=== PATIENT | male | born 1965 | race Asian ===

== ENCOUNTER 2019-07-16 18:14 | Emergency (ER) | payer BC ==
[~2019-07-16] VITALS: Ht 175.3 cm; Wt 63.5 kg
[2019-07-16 18:14] VITALS: BP 127/75
--- NOTE | 2019-07-16 18:15 | NUR ---
ED Nurse Note: pt ambulated into ed from home [place] fever x 4 days possibly d/t previous infected tooth since may. Pt was taking antibiotic to reduce infection prior to intended dental surgery but was unable to proceed with surgery d/t outside complications. Pt aao x 4, vss no ss of distress noted. ERPA at bedside
--- NOTE | 2019-07-16 18:31 | Emergency Room Report ---
History of Present Illness General Chief Complaint: Fever Source: Patient (Altagracia Madison) Present Illness HPI 53-year-old male with no significant past medical history here complaining of 3 days of fever and headache. Reports that the headache is on the same side he was previously diagnosed with tooth abscess. Patient was told that he had a tooth abscess back in early May by a dentist, was given antibiotics and felt better however reports that tooth extraction at this time due to quarantine. Denies any abdominal pain, nausea vomiting, vertigo, dizziness and hearing loss. Denies shortness of breath and cough. Reports that he has been staying home for the past several weeks. Reports that his roommate was sick prior to him for 5 days. Patient is currently taking Tamiflu since 2 days ago and reports no improvement. Has been taking Advil every few hours. Sitting comfortably with stable vital signs, oxygenation and temperature within normal limits. Denies recent travel. Minimal swelling noted on right maxilla and patient exhibits 3/10 pain upon palpation of the affected area. Denies any pain radiation or tingling numbness. (Altagracia Madison) Allergies: Coded Allergies: SULFA (SULFONAMIDE ANTIBIOTICS) (Verified Allergy, Mild, 07/16/19) COVID-19 Screening Contact w/high risk pt: No Recent Travel to affected area: No Experienced COVID-19 symptoms?: Yes COVID-19 symptoms experienced: Fever (T>100.4F or >38C) (Altagracia Madison) Patient History Past Medical History: see triage record Past Surgical History: none Pertinent Family History: none Immunizations: UTD Reviewed Nursing Documentation: PMH: Agreed; PSxH: Agreed (Altagracia Madison) Nursing Documentation-PMH Past Medical History: No Stated History (Altagracia Madison) Review of Systems All Other Systems: negative except mentioned in HPI (Altagracia Madison) Physical Exam Vital Signs Date Time Temp Pulse Resp B/P (MAP) Pulse Ox O2 Delivery O2 Flow Rate FiO2 07/16/19 18:05 98.1 90 18 127/75 (92) 98 Sp02 EP Interpretation: reviewed, normal General Appearance: no apparent distress, alert, GCS 15, non-toxic Head: normocephalic, atraumatic Eyes: bilateral eye normal inspection, bilateral eye PERRL ENT: hearing grossly normal, normal pharynx, no angioedema, normal voice Neck: full range of motion, supple/symm/no masses Respiratory: chest non-tender, lungs clear, normal breath sounds, no rhonchi, no retraction, no wheezing, speaking full sentences Cardiovascular #1: regular rate, rhythm, no edema Gastrointestinal: non tender, soft Genitourinary: no CVA tenderness Musculoskeletal: back normal, swelling - Right maxillary Neurologic: alert, oriented Psychiatric: normal inspection, judgement/insight normal Skin: no rash Lymphatic: no adenopathy (Altagracia Madison) Medical Decision Making PA Attestation All diagnoses and treatment plans were reviewed and discussed with my supervising physician Dr. Beyer (Altagracia Madison) Diagnostic Impression: Primary Impression: Dental abscess Additional Impression: Fever ER Course 53-year-old male with no significant past medical history here complaining of 3 days of fever and headache. Reports that the headache is on the same side he was previously diagnosed with tooth abscess. Patient was told that he had a tooth abscess back in early May by a dentist, was given antibiotics and felt better however reports that tooth extraction at this time due to quarantine. Denies any abdominal pain, nausea vomiting, vertigo, dizziness and hearing loss. Denies shortness of breath and cough. Reports that he has been staying home for the past several weeks. Reports that his roommate was sick prior to him for 5 days. Patient is currently taking Tamiflu since 2 days ago and reports no improvement. Has been taking Advil every few hours. Sitting comfortably with stable vital signs, oxygenation and temperature within normal limits. Denies recent travel. Minimal swelling noted on right maxilla and patient exhibits 3/10 pain upon palpation of the affected area. Denies any pain radiation or tingling numbness. Ddx considered but are not limited to: Coronavirus, strep pharyngitis, URI, tonsillitis, peritonsillar abscess, influneza fever secondary to tooth abscess Vital signs: are WNL, pt. is afebrile H&PE are most consistent with: Fever secondary to dental abscess ORDERS: CBC, CMP, UA, lactic acid, blood culture, influenza swab, CK, CK-MB, troponin, chest x-ray ED INTERVENTIONS: None required at this time. I signed out the patient to Dr. Beyer at 7:15PM DISCHARGE: At this time pt. is stable for d/c to home. Will provide printed patient care instructions, and any necessary prescriptions. Care plan and follow up instructions have been discussed with the patient prior to discharge. (Altagracia Madison) ER Course Patient seen and examined by me. He reported fever and flulike symptoms for the past week. On my exam he was in no distress. Nontoxic-appearing. Chest x- ray showed no obvious infiltrate. Patient complained of headache this was in the area of a dental abscess which had not been treated as he was unable to go to the dentist at this time due to coronavirus. Laboratory studies did demonstrate mild elevation of lactic acid vital signs otherwise stable. Low suspicion for sepsis. I did give oral antibiotics for dental abscess. I did also instruct patient to treat himself as he may have coronavirus infection. He did have flulike symptoms. But no hypoxia. No shortness of breath. Patient stable for discharge with outpatient follow-up. (Rios Beyer M.D.) Chest X-Ray Diagnostic Results Chest X-Ray Diagnostic Results : Chest X-Ray Ordered: Yes # of Views/Limited/Complete: 1 View Indication: Other - fever EP Interpretation: Yes PA Xray: Interpretation reviewed, by supervising MD, and agrees with findings. Interpretation: no consolidation, no effusion, no pneumothorax Impression: No acute disease Electronically Signed by: Altagracia Louis PA-C (Altagracia Madison) Last Vital Signs Date Time Temp Pulse Resp B/P (MAP) Pulse Ox O2 Delivery O2 Flow Rate FiO2 07/16/19 18:14 90 18 07/16/19 18:14 98.1 127/75 98 (Altagracia Madison) Disposition: HOME, SELF-CARE Condition: Stable Scripts Amoxicillin/Potassium Clav 875-125* (AUGMENTIN 875-125 TABLET*) 1 Each Tablet 1 TAB ORAL TWICE A DAY, #14 TAB Prov: Rios Beyer M.D. 07/16/19 Patient Instructions: Dental Abscess, [id number], Fever, Adult Altagracia Madison Jul 16, 2019 18:31 Rios Beyer M.D. Jul 20, 2019 05:27
[2019-07-16 18:54] LABS: APPEARANCE,URINE CLEAR; BASOPHILS % (AUTO) 0.9 % (0.0-2.0); BILIRUBIN, URINE 1+ (NEGATIVE); EOSINOPHILS % (AUTO) 3.1 % (0.0-3.0); GLUCOSE, URINE (UA) NEGATIVE (NEGATIVE); HEMATOCRIT 50.5 % (42.0-52.0); HEMOGLOBIN 16.6 G/DL (14.2-18.0); KETONES,URINE 1+ (NEGATIVE); LEUKOCYTE ESTERASE ,URINE 1+ (NEGATIVE); LYMPHOCYTES % (AUTO) 5.6 % (20.0-45.0); MEAN CORPUSCULAR VOLUME 93 FL (80-99); MONOCYTES % (AUTO) 6.3 % (1.0-10.0); NEUTROPHILS % (AUTO) 84.1 % (45.0-75.0); NITRITE,URINE NEGATIVE (NEGATIVE); PH,URINE 6 (4.5-8.0); PLATELET COUNT 295 K/UL (150-450); PROTEIN,URINE 2+ (NEGATIVE); RED BLOOD COUNT 5.41 M/UL (4.70-6.10); UROBILINOGEN,URINE 4 MG/DL (0.0-1.0); WHITE BLOOD COUNT 9.1 K/UL (4.8-10.8)
[2019-07-16 19:08] LABS: COLOR,URINE AMBER
--- NOTE | 2019-07-16 19:11 | NUR ---
ED Nurse Note: Patient is filling out registration paperwork, and exhibits no s/s of acute distress. Will continue to monitor results of specimen collection.
[2019-07-16 19:21] LABS: ALANINE AMINOTRANSFERASE 247 U/L (12-78); ALBUMIN 2.8 G/DL (3.4-5.0); ALBUMIN/GLOBULIN RATIO 0.6 (1.0-2.7); ALKALINE PHOSPHATASE 214 U/L (46-116); ASPARTATE AMINO TRANSFERASE 71 U/L (15-37); BILIRUBIN,TOTAL 0.5 MG/DL (0.2-1.0); BLOOD UREA NITROGEN 15 mg/dL (7-18); CALCIUM 8.4 MG/DL (8.5-10.1); CARBON DIOXIDE 32 MMOL/L (21-32); CHLORIDE 96 MMOL/L (98-107); CKMB 0.5 NG/ML (0.0-3.6); CREATINE KINASE 33 U/L (26-308); CREATININE 1.3 MG/DL (0.55-1.30); POTASSIUM 4.2 MMOL/L (3.5-5.1); SODIUM 133 MMOL/L (136-145)
[2019-07-16] MEDS ORDERED: AUGMENTIN 875-1 EAC1 ORAL (19:46)
--- NOTE | 2019-07-16 19:54 | NUR ---
ER DISCHARGE NOTE: Patient is cleared to be discharged per ERMD, pt is aox4, on room air, with stable vital signs. pt was given dc and prescription instructions, pt was able to verbalize understanding, pt id band and iv site removed without complications. pt is able to ambulate with steady gait. pt took all belongings.
[2019-07-16 19:55] VITALS: BP 127/75
--- NOTE | 2019-07-17 09:22 | Diagnostic Imaging Report ---
Indication: Shortness of breath Technique: One view of the chest Comparison: none Findings: There is some atelectasis at the left lung base. There is questionably some consolidation in the retrocardiac region. The remainder of the lungs and pleural spaces are clear. The heart size is normal. Bilateral basilar nipple shadows are incidentally noted Impression: Questionable retrocardiac infiltrate, could indicate pneumonia if real. Correlate with clinical findings
== END 2019-07-16 19:47 | disposition home or self-care (01) ==
LOC: EDBD 18:14 → EMR 19:35
DX: R50.9 Fever, unspecified (principal); K04.7 Periapical abscess without sinus; Z88.2 Allergy status to sulfonamides
CPT/HCPCS: 36415; 71045; 80053; 81003; 82550; 82553; 83605; 83880; 84484; 85025; 86710; 87040; 99283